=== PATIENT | male | born 1960 | race Caucasian/White ===

== ENCOUNTER 2017-03-20 09:52 | Day surgery (SDC) | payer OTHER ==
[~2017-03-20 09:52] MED LIST: LIDOCAINE 1%, 20ML ONE
[2017-03-20] MEDS ORDERED: MIDAZOLAM 1 MG/ML, 5ML ONE ×2 (10:27)
[2017-03-20] MEDS ORDERED: FENTANYL PF 100 MCG/2ML ONE (10:27)
[2017-03-20] MEDS ORDERED: NALOXONE 1 MG/ML, 2ML ONE (10:28)
[2017-03-20] MEDS ORDERED: FLUMAZENIL 0.1 MG/1 ML, 5ML ONE (10:28)
[2017-03-20 11:42] LABS: HEMATOCRIT 53.6 % (39.2-51.8); HEMOGLOBIN 17.8 g/dL (13.7-18.0); WHITE BLOOD COUNT 13.6 x10^3/uL (3.4-10)
[2017-03-20] MEDS ORDERED: LIDOCAINE 1%, 20ML ONE (11:42)
== END 2017-03-20 13:20 ==
LOC: RAD 09:52
PROVIDERS: ATTEND Internal Medicine
DX: C85.90 Non-Hodgkin lymphoma, unspecified, unspecified site (principal); D64.3 Other sideroblastic anemias
CPT/HCPCS: 36415; 38221; 77012; 85025; 85097; 88237; 88264; 88280; 88305; 88311; 88313; 99156; G0364; J2250; J3010; J3490; 88341; 88342; 88360; 99157; G0461; J2310